=== PATIENT | female | born 1975 | race African-American/Black ===

== ENCOUNTER 2019-12-30 08:25 | Outpatient (CLI) | payer OTHER ==
--- NOTE | 2020-01-12 10:31 | MMO ---
Bilateral MAMMO Bilat Screen [facility]. CLINICAL HISTORY: Patient is 44 years old and is seen for screening. The patient has no family history of breast cancer. The patient has no personal history of cancer. The patient has a history of right Cyst Aspiration in 2015 - benign. VIEWS: The views performed were: bilateral craniocaudal with tomosynthesis and bilateral mediolateral oblique with tomosynthesis. FILMS COMPARED: The present examination has been compared to prior imaging studies performed at [facility] on 11/29/2013 and 12/03/2013. This study has been interpreted with the assistance of computer-aided detection. MAMMOGRAM FINDINGS: There are scattered fibroglandular densities. There are no suspicious masses, suspicious calcifications, or new areas of architectural distortion. IMPRESSION: THERE IS NO MAMMOGRAPHIC EVIDENCE OF MALIGNANCY. A ROUTINE FOLLOW-UP MAMMOGRAM IN 1 YEAR IS RECOMMENDED. THE RESULTS OF THIS EXAM WERE SENT TO THE PATIENT. ACR BI-RADS Category 1 - Negative MAMMOGRAPHY NOTE: 1. A negative mammogram report should not delay a biopsy if a dominant of clinically suspicious mass is present. 2. Approximately 10% to 15% of breast cancers are not detected by mammography. 3. Adenosis and dense breasts may obscure an underlying neoplasm. Reported by: FCO MALHOTRA MD Electonically Signed: [id number]
== END 2019-12-30 08:26 | disposition home or self-care (01) ==
LOC: BICMAMMO 08:25
PROVIDERS: ATTEND Family Medicine
DX: Z12.31 Encounter for screening mammogram for malignant neoplasm of breast (principal)
CPT/HCPCS: 77063; 77067

== ENCOUNTER 2020-05-04 16:00 | Outpatient (CLI) | payer OTHER ==
--- NOTE | 2020-05-04 16:24 | RAD ---
XR Knee Lt 2 View HISTORY: Left knee pain FINDINGS: No fracture or dislocation is identified. No joint effusion is seen.
== END 2020-05-04 16:01 | disposition home or self-care (01) ==
LOC: BICRAD 16:00
PROVIDERS: ATTEND Family Medicine
DX: M25.562 Pain in left knee (principal)

== ENCOUNTER 2020-06-09 12:01 | Outpatient (CLI) | payer OTHER ==
--- NOTE | 2020-06-14 08:31 | EKG ---
Test Reason : Blood Pressure : / mmHG Vent. Rate : 092 BPM Atrial Rate : 092 BPM P-R Int : 186 ms QRS Dur : 094 ms QT Int : 368 ms P-R-T Axes : 055 024 027 degrees QTc Int : 455 ms Normal sinus rhythm Normal ECG No previous ECGs available Confirmed by ANDREA MCCABE MD ([id number]) on 06/14/2020 8:31:22 AM Referred By: ADENIKE Confirmed By:ANDREA MCCABE MD
== END 2020-06-09 12:02 | disposition home or self-care (01) ==
LOC: EKG 12:01
PROVIDERS: ATTEND Surgery
DX: E66.01 Morbid (severe) obesity due to excess calories (principal); R53.83 Other fatigue
CPT/HCPCS: 93005; 93010

== ENCOUNTER 2021-09-10 07:33 | Observation (INO) | payer OTHER ==
[2021-09-10 09:03] LABS: Bacteria/HPF None Seen HPF (None Seen); Bilirubin Negative (Negative); Blood, Urine Negative (Negative); Clarity Clear (Clear); Glucose, Urine (Dipstick) Normal (Negative); Ketone, Urine 80 mg/dL (Negative); Leukocyte 25 Leu/uL (Negative); Nitrite Negative (Negative); Protein, Urine (Dipstick) 50 mg/dL (Neg-Trace); RBC/HPF 0-3 HPF (0-3); Specific Gravity, Urine 1.036 (1.002-1.036); Urobilinogen 3 mg/dL (Less than 2); WBC/HPF 0-3 HPF (0-3)
[2021-09-10] MEDS ORDERED: predniSONE 20 MG TAB ONE (09:20)
[2021-09-10 09:48] LABS: Mean Corpuscular HGB CONC 31.4 g/dL (32.0-36.0); Mean Corpuscular Hemoglobin 29.3 pg (27.0-31.0); Mean Corpuscular Volume 93.5 fL (78.0-98.0); Platelet Count 286 thou/uL (130-400); RBC Distribution Width 12.6 % (11.5-14.5); Red Blood Cell (RBC) Count 4.78 mill/uL (4.20-5.40); White Blood Cell (WBC) Count 4.4 thou/uL (4.8-10.8)
[2021-09-10 10:13] LABS: Band 23 % (5-11); Eosinophils 1 % (0-10); Lymphocytes 23 % (21-51); MDiff Complete? YES; Mean Platelet Volume 6.9 fL (7.4-10.4); Monocytes 21 % (0-10); Neutrophil 31 % (42-75); Platelet Morphology Comment Appears Adequate; RBC Morphology Normal; Reactive Lymphocytes 1 % (0-10)
[2021-09-10 11:53] LABS: Albumin 4.2 g/dL (3.5-5.0)
[2021-09-10 11:54] LABS: Chloride 106 mmol/L (98-107); Potassium 3.7 mmol/L (3.5-5.1); Sodium 138 mmol/L (136-145)
[2021-09-10 11:55] LABS: Calcium 8.9 mg/dL (7.8-10.44); Glucose 95 mg/dL (70-105)
[2021-09-10 11:56] LABS: Globulin 3.9 g/dL (2.4-3.5); Protein, Total 8.1 g/dL (6.0-8.3)
[2021-09-10 11:57] LABS: Anion Gap 13 mmol/L (10-20); Bilirubin, Total 0.3 mg/dL (0.2-1.2); Carbon Dioxide 23 mmol/L (22-29)
[2021-09-10 11:58] LABS: Alkaline Phosphatase 106 U/L (40-110)
[2021-09-10 11:59] LABS: Calc. Creatinine Clearance 0 mL/min (70-130)
[2021-09-10 12:00] LABS: AST (SGOT) 70 U/L (5-34); BUN (Urea Nitrogen) 7 mg/dL (7.0-18.7)
[2021-09-10 12:01] LABS: ALT (SGPT) 72 U/L (8-55); CK (CPK) 27 U/L (29-168)
[2021-09-10] MEDS ORDERED: Acetaminophen 325 MG TAB PO PRN (13:34)
[2021-09-10] MEDS ORDERED: Ondansetron ODT 4 MG TAB PO PRN (13:34)
[2021-09-10 15:03] VITALS: BMI 42.6
[2021-09-10] MEDS: diphenhydrAMINE 25 MG CAP PO SCH (17:20)
[2021-09-10] MEDS: Famotidine 20 MG TAB PO SCH (21:26)
[2021-09-10 21:53] LABS: SARS-CoV-2 PCR by NAA Not Detected (NotDetected)
[2021-09-11] MEDS: diphenhydrAMINE 25 MG CAP PO SCH ×2 (00:15→06:21)
[2021-09-11 08:27] LABS: Hemoglobin 13.3 g/dL (12.0-16.0); Mean Corpuscular HGB CONC 31.8 g/dL (32.0-36.0); Mean Corpuscular Volume 94.3 fL (78.0-98.0); Mean Platelet Volume 6.2 fL (7.4-10.4); Platelet Count 256 thou/uL (130-400); RBC Distribution Width 12.5 % (11.5-14.5); Red Blood Cell (RBC) Count 4.43 mill/uL (4.20-5.40); White Blood Cell (WBC) Count 4.6 thou/uL (4.8-10.8)
[2021-09-11] MEDS: Famotidine 20 MG TAB PO SCH (08:38)
[2021-09-11 08:50] LABS: Anion Gap 12 mmol/L (10-20); BUN (Urea Nitrogen) 7 mg/dL (7.0-18.7); Calc. Creatinine Clearance 136 mL/min (70-130); Calcium 9.1 mg/dL (7.8-10.44); Carbon Dioxide 26 mmol/L (22-29); Chloride 105 mmol/L (98-107); Glucose 94 mg/dL (70-105); Potassium 3.8 mmol/L (3.5-5.1); Sodium 139 mmol/L (136-145)
[2021-09-11] MEDS ORDERED: Triamcinolone 0.1% Cream 15 GM TUBE TOP SCH (09:00)
[2021-09-11] MEDS ORDERED: FLU VACC QS2021-22(6MOS UP)/PF 60 MCG/0.5 ML SYRINGE IM ONE (09:00)
[2021-09-11] MEDS ORDERED: Loratadine 10 MG TAB PO SCH (09:00)
[2021-09-11 09:01] LABS: Band 16 % (5-11); Lymphocytes 28 % (21-51); MDiff Complete? YES; Monocytes 17 % (0-10); Neutrophil 38 % (42-75); Platelet Morphology Comment Appears Adequate; RBC Morphology Normal; Reactive Lymphocytes 1 % (0-10)
[2021-09-11 12:11] VITALS: TEMP 98
[2021-09-11 15:53] VITALS: BP 125/83
== END 2021-09-11 15:40 | disposition left against medical advice (07) ==
LOC: ERS 07:33 → T4-A 12:51
PROVIDERS: ADMIT Internal Medicine; ATTEND Hospitalist
DX: R21 Rash and other nonspecific skin eruption (principal); F39 Unspecified mood [affective] disorder; R61 Generalized hyperhidrosis; R50.9 Fever, unspecified; Z53.29 Procedure and treatment not carried out because of patient's decision for other reasons; Z79.899 Other long term (current) drug therapy; Z88.8 Allergy status to other drugs, medicaments and biological substances; Z20.822 Contact with and (suspected) exposure to COVID-19
CPT/HCPCS: 36415; 80048; 80053; 81003; 81015; 82550; 83605; 84145; 85025; 85652; 86140; 87040; 87086; 99284; G0378; J7512; U0003; U0005